=== PATIENT | male | born 1960 | race Caucasian/White ===

== ENCOUNTER → 2016-11-08 | Outpatient (REF) ==
--- NOTE | 2016-11-08 17:03 | REP ---
PARTIAL LUMBAR SPINE, THREE VIEWS: HISTORY: Degenerative disc disease. There is no acute fracture or subluxation. The intervertebral discs are decreased in height consistent with disc degeneration. Osteophytes are present throughout the lumbar spine. There is sclerosis of the L4-5 and L5-S1 facets. IMPRESSION: Degenerative change as described above. Signed by Stevenson Buck MD 11/08/2016 05:06 P
--- NOTE | 2016-11-08 17:06 | REP ---
LEFT KNEE, FIVE VIEWS: HISTORY: Degenerative joint disease. There is no acute fracture or dislocation. There is narrowing of the joint spaces. IMPRESSION: Degenerative change as described above. Signed by Stevenson Buck MD 11/08/2016 05:07 P
== END ==
LOC: M SMT 13:21
PROVIDERS: ATTEND Internal Medicine
DX: Z02.1 Encounter for pre-employment examination (principal)